=== PATIENT | female | born 1960 | race Caucasian/White ===

== ENCOUNTER 2017-11-26 13:02 | Emergency (ER) | payer OTHER ==
[~2017-11-26] VITALS: Ht 172.7 cm; Wt 63.5 kg
[2017-11-26 13:29] VITALS: BP_SYST 111
[2017-11-26 16:12] VITALS: BP_SYST 111
== END 2017-11-26 16:12 | disposition home or self-care (01) ==
LOC: SED 13:02
DX: S86.011A Strain of right Achilles tendon, initial encounter (principal); X58.XXXA Exposure to other specified factors, initial encounter; Y93.41 Activity, dancing; Y92.89 Other specified places as the place of occurrence of the external cause; Y99.8 Other external cause status
CPT/HCPCS: 73590-TC; 99284